=== PATIENT | male | born 1960 | race Caucasian/White ===

== ENCOUNTER 2019-10-01 09:49 | Day surgery (SDC) | payer MEDICAID ==
[~2019-10-01] VITALS: Ht 177.8 cm; Wt 72.7 kg
[2019-10-01] MEDS ORDERED: SODIUM CHLORIDE 0.9% 1,000 ML IV SCH ×2 (11:15→13:48)
[2019-10-01 11:17] VITALS: BP 133/72
[2019-10-01] MEDS ORDERED: ASPIRIN 325 MG TABLET EC PO ONE (11:30)
[2019-10-01] MEDS ORDERED: PLEASE ENTER HEIGHT AND WEIGHT MC SCH (11:30)
[2019-10-01] MEDS ORDERED: ALBU18HF INH (11:46)
[2019-10-01] MEDS ORDERED: BUDE10.2 INH (11:46)
[2019-10-01] MEDS ORDERED: ATOR40TA78 PO (11:46)
[2019-10-01] MEDS ORDERED: ASPI81TA45 PO (11:46)
[2019-10-01] MEDS ORDERED: NITR0.4T28 SL (11:46)
[2019-10-01 11:54] LABS: BASOPHILS # (AUTO) 0.03 x10^3/uL (0-0.1); BASOPHILS % (AUTO) 0 % (0-1); EOSINOPHILS # (AUTO) 0.22 x10^3/uL (0-0.4); EOSINOPHILS % (AUTO) 3 % (1-7); LYMPHOCYTES # (AUTO) 3.43 x10^3/uL (1-3.4); LYMPHOCYTES % (AUTO) 40 % (22-44); MD NO; MEAN CORPUSCULAR HEMOGLOBIN 30.6 pg (27.5-34.5); MEAN CORPUSCULAR HGB CONC 32.4 g/dL (33.2-36.2); MEAN CORPUSCULAR VOLUME 94.4 fL (81-97); MEAN PLATELET VOLUME 8.1 fL (7.4-10.4); MONOCYTES # (AUTO) 0.67 x10^3/uL (0.2-0.8); MONOCYTES % (AUTO) 8 % (2-9); NEUTROPHILS # (AUTO) 4.31 x10^3/uL (1.8-6.8); NEUTROPHILS % (AUTO) 50 % (42-75); PLATELET COUNT 245 x10^3/uL (130-400); RED BLOOD COUNT 5.08 x10^6/uL (4.38-5.82); RED CELL DISTRIBUTION WIDTH 14.7 % (9.4-14.8)
[2019-10-01 12:02] LABS: ANION GAP 6 mmol/L (5-15); CALCIUM 8.9 mg/dL (8.5-10.1); CHLORIDE 112 mmol/L (98-107); CREATININE 0.92 mg/dL (0.7-1.3)
[2019-10-01] MEDS ORDERED: FENTANYL PF 100 MCG/2ML ONE (13:08)
[2019-10-01] MEDS ORDERED: BIVALIRUDIN 250 MG ONE (13:08)
[2019-10-01] MEDS ORDERED: VERAPAMIL 2.5 MG/ML, 2ML ONE (13:08)
[2019-10-01] MEDS ORDERED: LIDOCAINE-MPF 1%, 5ML ONE (13:08)
[2019-10-01] MEDS ORDERED: TICAGRELOR 90 MG TABLET ONE (13:08)
[2019-10-01] MEDS ORDERED: MIDAZOLAM 1 MG/ML, 5ML ONE (13:08)
[2019-10-01] MEDS ORDERED: HEPARIN 1,000 UNITS/ML, 10ML ONE (13:09)
== END 2019-10-01 15:37 | disposition home or self-care (01) ==
LOC: CACL 09:49
PROVIDERS: ATTEND Internal Medicine Cardiovascular Disease
DX: R93.1 Abnormal findings on diagnostic imaging of heart and coronary circulation (principal); R00.2 Palpitations; J44.9 Chronic obstructive pulmonary disease, unspecified; I10 Essential (primary) hypertension; E78.5 Hyperlipidemia, unspecified; Z87.891 Personal history of nicotine dependence; Z82.49 Family history of ischemic heart disease and other diseases of the circulatory system; Z98.890 Other specified postprocedural states; Z79.82 Long term (current) use of aspirin; Z79.899 Other long term (current) drug therapy
CPT/HCPCS: 36415; 71046; 80048; 85025; 93458; 99156; C1769; C1894; J0583; J1644; J2250; J3010; Q9967